=== PATIENT | female | born 1945 | race Caucasian/White ===

== ENCOUNTER 2016-10-19 21:10 | Emergency (ER) | payer MEDICARE ==
[~2016-10-19] VITALS: Ht 162.6 cm; Wt 95.5 kg
[~2016-10-19 21:10] MED LIST: ACET-171 PO; BUDE10.2 INHALATION; CA C1TAB77 PO; CLOB15CR2 TP; DIF100A PO; ESTR100P26 VAGINAL; ESTR1TAB24 PO; FOLI1TAB50 PO; KTC2C15 TP; LOSA50TA37 PO; LYSI1000 PO; MEDR2.5T7 PO; PANT40TA2 PO; VIT1TABL83 PO; ZOV800 PO
[2016-10-19 21:17] VITALS: BP 166/93; PULSE 83; RESP 20; O2SAT 96
--- NOTE | 2016-10-19 23:26 | ED.REPORT ---
HPI- Female Date of Service Oct 19, 2016 ED Provider: Scot Ingram MD A 71 year old female with a history of lung sarcoidosis, hypertension, anxiety, , oophorectomy, hormone replacement therapy, and surgical operation today presents to the ED due to possible urinary retention. The pt had a cystoscopy, transurethral Macroplastique injection today at . She immediately began experiencing urinary urgency and dysuria immediately following the surgery. This worsened, the the pt began to experience frequency and spasms as well. She called her PCP, who recommended that she come to the ED to be evaluated for urinary retention. Nursing Notes Stated Complaint: POST OP ISSUES Chief Complaint: General Complaint Nursing Notes Reviewed: Yes Allergies: Coded Allergies: No Known Allergies (Unverified , 07/29/16) Scheduled Acetaminophen (Acetaminophen) 500 Mg Tablet 1,000 MG PO BID Acyclovir (Acyclovir) 800 Mg Tab 800 MG PO BID Budesonide/Formoterol 80-4.5 mcg Inh (Symbicort 80-4.5 mcg Inh) 120 Puff Inhaler 2 PUFF INHALATION BID Ca Carb/Vit D3/Mag Ox/Zn Oxide (Rhys Mag Zinc + D3 Tablet) 1 Each Tablet 3 EACH PO DAILY Clobetasol Propionate (Clobetasol Propionate) 15 Gm Cream..g. 15 GM TP DIRECTED Estradiol (Estradiol) 1 Mg Tablet 0.5 MG PO DAILY Estriol (Estriol) 100 Gm Powder 1 MM VAGINAL every other day Fluconazole (Diflucan) 100 Mg Tab 100 MG PO DAILY Ketoconazole (Ketoconazole) 15 Gm Cream..g. 15 GM TP DIRECTED Losartan Potassium (Losartan Potassium) 50 Mg Tablet 50 MG PO DAILY Lysine (Lysine) 1,000 Mg Tablet 1,000 MG PO DAILY Medroxyprogesterone (Medroxyprogesterone) 2.5 Mg Tablet 2.5 MG PO DAILY Mv,Ca,Min/Iron Fum/FA/Vit K (Multi For Her Tablet) 1 Each Tablet 3 EACH PO DAILY Pantoprazole DR (Protonix) 40 Mg Tablet 40 MG PO BID Pantoprazole DR (Protonix) 40 Mg Tablet 40 MG PO DAILY Vit B Comp/C/FA/Iron/Vit E (Vitamin B Complex Tablet) 1 Each Tablet 1 EACH PO DAILY General Time Seen by MD: 23:26 Chief Complaint Other (Urinary retention) Hx Obtained From: Patient Arrived By: Walk-in Sudden in Onset?: Yes Onset Occurred: 5 - 8 hours ago Symptom Duration: Since onset Recent Healthcare: Recent doctor visit, Recent hospitalization Similar Sx Previous: No Past Medical History Past Medical History lung sarcoidosis hypertension thyroid disease (resolved) edema pneumonia diverticulosis heartburn UTI hormone replacement therapy arthritis anxiety roseacea Past Surgical History cystoscopy, transurethral Macroplastique injection lung biopsy eyelid surgery 2015 oophorectomy Reports: Tonsillectomy Smoking History Never Smoker Social History Other Social History: Good social support Ambulatory Status Independent Review of Systems Constitutional: Denies: Fever Female: Reports: Dysuria, Urinary frequency, Urinary urgency Musculoskeletal: Denies: Back pain Skin: Denies Rash Complete sys rev & neg: except as marked. Physical Exam Initial Vital Signs Vital Signs (First) Date Time Temp Pulse Resp B/P Pulse Ox O2 Delivery O2 Flow Rate FiO2 10/19/16 21:17 36.3 83 20 166/93 96 10/20/16 01:25 Room Air Initial VS: Reviewed Female Genitourinary: Exam deferred General/Constitutional: Awake, Alert Appearance / Presentation: Positive: Obese Respiratory / Chest: Atraumatic, Breath sounds NL, Breath sounds = bilat, No respiratory distress Cardiovascular: Heart rate NL, Regular rhythm, Heart sounds NL Abdomen: Atraumatic, Soft, Non-tender Back: Atraumatic, Full range of motion Skin: Atraumatic, Color NL, No rash, Warm, Dry Head / Eyes: Atraumatic, Normocephalic, PERRL, EOMI ENT: Atraumatic, Airway patent, Mucous membranes moist Neck: Atraumatic, Supple, Full range of motion Upper Extremity / MS: Atraumatic, Full range of motion Lower Extremity / Pelvis / MS: Atraumatic, Full range of motion Neurologic: Oriented X3, Speech NL, No motor deficits, No sensory deficits Psychiatric: Affect NL, Mood NL Interpretation & Diagnostics Lab Results Interpretation Test 10/20/16 00:45 Urine Color [place] (YELLOW) Urine Appearance Clear (CLEAR,HAZY) Urine pH Color interference Urine Specific [place] 1.013 (1.003-1.035) Urine Protein Color interferencemg/dL Urine Glucose (UA) Color interferencemg/dL Urine Ketones Color interferencemg/dL Urine Occult Blood Color interference Urine Nitrite Color interference Urine Bilirubin Color interference Urine Urobilinogen Color interferencemg/dL Urine Leukocyte Esterase Color interference Urine RBC 3-10/hpf (0-2) Urine WBC 0-5/hpf (0-5) Urine Epithelial Cells Occasional/hpf (NONE-MOD) Urine Crystals None seen (NONE SEEN) Urine Bacteria Few/hpf (NONE-FEW) Urine Hyaline Casts None/lpf (NONE) Urine Granular Casts None seen (NONE SEEN) Urine Waxy Casts None seen (NONE SEEN) Urine Red Blood Cell Casts None seen (NONE SEEN) Urine White Blood Cell Casts None seen (NONE SEEN) Urine Mucus Present (None Seen) Urine Trichomonas None seen (NONE SEEN) Urine Yeast None (NONE SEEN) Urinalysis Comment None Urine Culture Reflexed Not indicated Re-Eval/Medical Decision Med Decision/Clinical Course 71-year-old presents after a urologic procedure with urinary retention. Garcia was placed relieving her 670 mL of retained urine. Referred back to , and her surgeon is already agreed to see her today. Discharged in stable and improved condition. Urine culture pending. Source of Hx: Old records Re-Evaluation/Progress : Time of Eval: 00:19 Patient Status: Condition improved Re-Evaluation/Progress Note: Pt rechecked, who is resting comfortably. She is informed of her diagnosis and the plan for discharge. The pt understands and agrees with the plan. All questions are addressed at this time. Counseled Regarding: Diagnosis, Need for follow-up, When/why to return to ED Discharge & Departure Impression: Primary Impression: Urinary retention Disposition: Home Discharge Condition All VS Reviewed: Yes Condition: Stable Patient Instructions: Acute Urinary Retention in Women (ED) Additional Instructions: Leave the Garcia catheter in place. Use a large bag at night for sleep, and a small bag attached to the leg or in the day. Call your urologist tomorrow morning for follow-up. Return for any immediate issues. Referrals: Ángel Han MD (PCP) Baljinder Attestation Portions of this note were transcribed by Brody Meza. I, Dr. Ingram personally performed the history, physical exam and medical decision-making; I reviewed and confirmed the accuracy of the information in the transcribed note. Signed by: Baljinder Calvillo, 10/20/2016 and 0052. copies to: Ángel Han MD, Christopher W MD Oct 19, 2016 23:26 BRODY MEZA Oct 19, 2016 23:30
[2016-10-20 01:21] LABS: APPEARANCE,URINE CLEAR (CLEAR,HAZY); COLOR,URINE ORANGE (YELLOW); OCCULT BLOOD,URINE COLOR INTERFERENCE (NEGATIVE); PH,URINE COLOR INTERFERENCE (5.0-8.0)
[2016-10-20 01:22] LABS: UROBILINOGEN,URINE COLOR INTERFERENCE mg/dL (NORMAL)
[2016-10-20 01:25] VITALS: BP 117/86; PULSE 76; RESP 16; O2SAT 100
== END 2016-10-20 00:49 | disposition home or self-care (01) ==
LOC: SED 21:10
DX: N99.89 Other postprocedural complications and disorders of genitourinary system (principal); Y84.8 Other medical procedures as the cause of abnormal reaction of the patient, or of later complication, without mention of misadventure at the time of the procedure; Y92.9 Unspecified place or not applicable; Y93.9 Activity, unspecified; Y99.9 Unspecified external cause status; R33.9 Retention of urine, unspecified; I10 Essential (primary) hypertension; F41.9 Anxiety disorder, unspecified; Z87.09 Personal history of other diseases of the respiratory system; Z98.890 Other specified postprocedural states; Z90.721 Acquired absence of ovaries, unilateral; Z79.890 Hormone replacement therapy